=== PATIENT | male | born 1975 | race Hispanic/Latino ===

== ENCOUNTER 2018-03-28 13:43 | Emergency (ER) | payer OTHER, SELFPAY ==
[2018-03-28] MEDS ORDERED: Naproxen 500 MG TAB ONE (14:15)
[2018-03-28] MEDS ORDERED: Acetaminophen 500 MG TAB ONE (14:15)
== END 2018-03-28 14:20 | disposition home or self-care (01) ==
LOC: MADERS 13:43
DX: H92.03 Otalgia, bilateral (principal)
CPT/HCPCS: 99282